=== PATIENT | female | born 1965 | race Caucasian/White ===

== ENCOUNTER 2017-12-29 06:01 | Day surgery (SDC) | payer BC ==
[2017-12-29] MEDS ORDERED: LIDOCAINE 2% (SDV) 5 ML INJ (08:45)
[2017-12-29] MEDS ORDERED: PROPOFOL 40 ML (08:45)
[2017-12-29] MEDS ORDERED: MIDAZOLAM 1 MG/ML 2 ML INJ (08:46)
== END 2017-12-29 11:55 | disposition home or self-care (01) ==
LOC: GIL 06:01
DX: Z12.11 Encounter for screening for malignant neoplasm of colon (principal); K64.4 Residual hemorrhoidal skin tags; K64.8 Other hemorrhoids
CPT/HCPCS: 45378; 84703